=== PATIENT | male | born 1955 | race Caucasian/White ===

== ENCOUNTER 2025-03-17 11:21 | Emergency (ER) | payer MEDICARE, BC ==
[~2025-03-17] VITALS: Ht 175.3 cm; Wt 99.1 kg
[2025-03-17] MEDS: adenosine 3mg/ml 2ml vial IV ONE ×2 (11:35)
--- NOTE | 2025-03-17 11:43 | Physician Documentation ---
History of Present Illness ~ Chief Complaint: Chest Pain Stated Complaint: CHEST PRESSURE Time Seen by MD: 11:29 OK to notify your PCP?: Yes Source: patient, RN/MD, RN notes reviewed, EMS notes reviewed Mode of Arrival: EMS Exam Limitations: no limitations HPI This pleasant 69-year-old [facility] resident comes in complaining of chest pressure that has been going on and off for about four nights. Other than that he has never had any cardiac issues. He has been taking a long walk this weekend but otherwise he feels healthy. After the long walk he was having these episodes of chest pressure but this morning at 3:00 a.m. he started having rapid heart rate as well as some other symptoms such as diaphoresis but no shortness of breath. It would go on and off today he then had his regular two cups of coffee but no other stimulants by history. He does drink alcohol on the weekends but did not drink this weekend he only had two shots of hard liquor during a . He continued to have these symptoms and decided to come in. He has no other complaints at this time. He has a history of most double orthopedic surgeries as well as a inguinal hernia. x tobacco smoker negative past medical history Medication Reconciliation Allergies: Coded Allergies: adhesive tape (Verified Allergy, Intermediate, RASH, 03/17/25) Scheduled Sotalol Hcl* (Betapace*), 0.5 TAB PO Q12H Past Medical History Past Medical History: No Pertinent History Past Surgical History: abdominal surgery (inguinal hernia repair), orthopedic surgeries, other (L spine surgery) Smoking Status: Former smoker Alcohol Use: Occasionally Drug Use: none Lives with: S/O Review of Systems All Other Systems at this time: Reviewed and Negative Physical Exam Vital Signs: RN Vital Signs have been reviewed: Yes, Temperature: 97.9, Source: Oral, Heart Rate: 164, Respiratory Rate: 16, BP: 136/96, Pulse Oximetry: 97, Weight: 99.090 Oxygen Flow Rate: 0 Physical Exam General: The patient is well developed, well nourished, nontoxic appearing and is in no acute distress. Skin: [place], warm and dry with no rashes. HEENT: Head was normocephalic and atraumatic. Eyes - pupils equal, round, reactive to light and accommodation. Extraocular movements were intact. Conjunctivae were nonicteric. The mouth and oropharynx were clear with moist mucous membranes. There were no pharyngeal exudates or erythema. Neck: Supple and nontender. There was no jugular venous distention, lymphadenopathy, thyromegaly or masses. Chest: Clear to auscultation bilaterally without wheezes, rales or rhonchi. No accessory muscle use. No dullness to percussion. Heart: Rate regular RAPID and rhythmic. S1, S2. No murmurs. Palpation of the chest wall was normal. Abdomen: Soft, nontender and nondistended. Positive bowel sounds. No guarding or rebound. Extremities: No cyanosis, clubbing or edema. The patient moves all extremities. Pulses were equal and symmetric. Neurologic: MOTOR SENSORY GROSSLY INTACT Psychologic: The patient was oriented to person, place and time. The patient demonstrated appropriate judgement and insight. Progress Results/Orders Reviewed/noted all lab results: Yes Results/Orders Orders - DAVID FALL MD Urinalysis, Cult If Indicated (03/17/25 11:29) Chest,Single View (03/17/25 11:29) Electrocardiogram (03/17/25 11:29) Hs Troponin I W Calculations (03/17/25 14:29) Drug Screen, Urine (03/17/25 11:30) Normal Saline 1000ml (0.9% Sodium Chlori (03/17/25 11:30) Sotalol Tablet (Betapace) (03/17/25 15:15) Completed Orders - DAVID FALL MD Cbc/Diff (03/17/25 11:29) MG (03/17/25 11:29) Pt Inr (03/17/25 11:29) PTT (03/17/25 11:29) PBNP (03/17/25 11:29) Chest,Single View (03/17/25 11:29) Ethanol (03/17/25 11:29) Electrocardiogram (03/17/25 11:29) BMP (03/17/25 11:29) Hs Troponin I W Calculations (03/17/25 11:29) Hs Troponin I W Calculations (03/17/25 13:29) Lipase (03/17/25 11:30) Magnesium Sulf-Water 2g/50ml (Magnesium (03/17/25 11:30) Adenosine Inj. (Adenocard Inj.) (03/17/25 11:35) Adenosine Inj. (Adenocard Inj.) (03/17/25 11:35) Aspirin 81mg Chew Tablet (Aspirin 81mg C (03/17/25 11:50) Medications Received in ER Medications (Trade) Dose Ordered Sig/Gerald Route PRN Reason Start Time Stop Time Status Last Admin Dose Admin Sodium Chloride 1,000 ml @ 200 mls/hr Q5H ONCE IV 03/17/25 11:30 03/17/25 16:29 03/17/25 11:52 200 MLS/HR Magnesium Sulfate 50 ml @ 25 mls/hr ONCE ONCE IV 03/17/25 11:30 03/17/25 13:29 DC 03/17/25 11:52 25 MLS/HR (aspirin 81MG chew tablet) 324 mg ONCE ONCE PO 03/17/25 11:50 03/17/25 11:51 DC 03/17/25 11:50 324 MG Vital Signs 03/17/25 03/17/25 03/17/25 03/17/25 11:29 11:54 12:03 13:58 Temp 97.9 97.6 97.6 Pulse 164 97 89 Resp 16 20 20 19 B/P (MAP) 136/96 100/74 (83) 108/79 (89) Pulse Ox 97 95 95 O2 Flow Rate 0 0 0 03/17/25 14:57 Temp 97.6 Pulse 82 Resp 15 B/P (MAP) 151/98 (115) Pulse Ox 96 O2 Flow Rate 0 Laboratory Tests Test 03/17/25 11:39 03/17/25 13:33 03/17/25 14:58 White Blood Count 7.4 Red Blood Count 5.70 Hemoglobin 17.9 Hematocrit 52.2 H Mean Corpuscular Volume 91.5 Mean Corpuscular Hemoglobin 31.4 H Mean Corpuscular Hemoglobin Concent 34.3 Red Cell Distribution Width 14.7 H Platelet Count 301 Mean Platelet Volume 7.7 Neutrophils (%) (Auto) 65.2 Lymphocytes (%) (Auto) 23.0 Monocytes (%) (Auto) 8.6 Eosinophils (%) (Auto) 2.5 Basophils (%) (Auto) 0.7 Neutrophils # (Auto) 4.8 Lymphocytes # (Auto) 1.7 Monocytes # (Auto) 0.6 Eosinophils # (Auto) 0.2 Basophils # (Auto) 0.1 CBC Comment Prothrombin Time 11.2 INR International Normalized Ratio 1.1 Activated Partial Thromboplast Time 31 Coagulation Comments Sodium Level 136 Potassium Level 4.9 Chloride Level 102 Carbon Dioxide Level 26.5 Anion Gap 8 Blood Urea Nitrogen 13 Creatinine 0.80 Estimated GFR/1.73 m2 > 90 BUN/Creatinine Ratio 16.3 Glucose Level 116 H Calcium Level 8.7 Magnesium Level 1.8 Troponin I High Sensitivity 24 30 Pro-B-Type Natriuretic Peptide 263 H Albumin 3.5 Lipase 50 Chemistry Comments Ethyl Alcohol Level < 10 Troponin I High Sens Percent Delta 25 Troponin I Hi Sens Absolute Change 6 Re-Evaluation Re-Evaluation : Re-Evaluation: Resolved, Improved Progress Patient was seen and examined patient was given reassurance pacer pads IV lines were established fluid boluses were given as well as magnesium. Aspirin as well. Patient's laboratory work CBC did not show any signs of anemia or leukocytosis. Patient's chemistry electrolytes were within normal limits troponins all within normal limits. Patient's alcohol level was negative. X- ray did not show any cardiomegaly. Patient was doing better resolved on its own received sotalol and prescribed the same for PRN basis. Etiologies can be cardiovascular but unlikely patient exercises frequently and has not had any issues necessarily but did have some exercising this week and then started having his arrhythmias. Electrolytes were negative. Most likely may need a Holter monitor as well as cardiac evaluation. Patient was then discharged home recommended daily aspirin. 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 David Fall Measurements Intervals [place] Rate: 166 P: 75 MI: 92 QRS: -62 QRSD: 80 T: 40 QT: 297 QTc: 494 Interpretive Statements Supraventricular tachycardia Left anterior fascicular block Abnormal R-wave progression, late transition Consider left ventricular hypertrophy Nonspecific T abnormalities, inferior leads Electronically Signed On 03-17-2025 13:30:[address] David Fall Please click the below link to view image of tracing. EKG Date and Time:03/17/25 1124 Chest X-Ray : Interpreted By: both Views: 1 VIEW Additional Comments CHEST RADIOGRAPH Indication: CHEST PAIN Technique: Single frontal view of the chest was obtained COMPARISON: None FINDINGS: Lines and Tubes: None Lungs: Clear Pleura: No effusion. No pneumothorax. Cardiomediastinal contours: Unremarkable Bones: Unremarkable IMPRESSION: No acute disease. Electronically Signed by:MELVIN YEUNG MD Date & Time: 03/17/25 1248 Heart Score: Heart Score Response (Comments) Value History Slightly Suspicious 0 EKG Repolarization Disturb 1 Age >65 2 Risk Factors No known risk factors 0 Troponin Normal limit 0 Total 3 Medical Decision Making Additional information obtaine: old records Findings Patient has a SVT etiology electrolytes versus coronary artery disease versus arrhythmias Heart Score: 4 Differential Dx:Considerations: Include: angina, aortic dissection, chest wall pain, cholelithiasis, CHF, costochondritis, esophageal reflux/spasm, gastritis, herpes zoster, myocardial infarction, pericarditis, pleuritis, pancreatitis, pneumonia, pneumothorax, pulmonary embolus, other Departure Disposition: 09 ADMITTED INPATIENT Admitted to Inpatient Unit: to hospitalist Admission Level of Care: PCU with Tele Impression: Primary Impression: SVT (supraventricular tachycardia) Additional Impression: Chest pressure Condition: Guarded Discharge Instructions: Supraventricular Tachycardia, Adult, [id number] Additional Instructions: Follow up with Cardiology for Holter monitor and additional cardiac workup take a daily aspirin as needed till your cardiac workup beta faraz was given on a PRN basis but if you have additional episodes you still need to return to the ER. Referrals: NO PRIMARY CARE PROVIDER (PCP) STEVE ANNE MD Prescriptions Sotalol Hcl* (Betapace*) 80 Mg Tablet 0.5 TAB PO Q12H for 30 Days, #30 TAB 0 Refills Prov: DAVID FALL MD 03/17/25 Education Educated: Patient Educated regarding: diagnosis, need for follow up, other Critical Care Note Total Time (mins): 30 Critical Care Note The very real possibility of a deterioration of this patient's condition required the highest level of my preparedness for sudden, emergent intervention. I provided critical care services, which included medication orders, frequent reevaluations of the patient's condition and response to treatment, ordering and reviewing test results, and discussing the case with various consultants. Excludes time spent performing separately billable procedures. The critical care time associated with the care of the patient was. 30 minutes Signature Scribe Signature: No Attestation: The note accurately reflects work and decisions made by me.David Fall MD 03/17/25 15:21 DAVID FALL MD Mar 17, 2025 11:42
--- NOTE | 2025-03-17 11:48 | ELECTROCARDIOGRAPH REPORT ---
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 Kamar Osorio Measurements Intervals [place] Rate: 166 P: 75 CT: 92 QRS: -62 QRSD: 80 T: 40 QT: 297 QTc: 494 Interpretive Statements Supraventricular tachycardia Left anterior fascicular block Abnormal R-wave progression, late transition Consider left ventricular hypertrophy Nonspecific T abnormalities, inferior leads Electronically Signed On 03-17-2025 13:30:[address] Kamar Osorio Please click the below link to view image of tracing.
[2025-03-17] MEDS: magnesium sulf-water 2g/50mL 50 ML IV ONE (11:52)
[2025-03-17] MEDS: normal saline 1000ml 1,000 ML IV ONE (11:52)
[2025-03-17 11:58] LABS: MEAN PLATELET VOLUME 7.7 FL (7.4-10.4); RED CELL DISTRIBUTION WIDTH 14.7 % (11.5-14.5)
[2025-03-17 12:07] LABS: APTT 31 SECONDS (22-32); INR 1.1 INR
[2025-03-17 12:16] LABS: CREATININE 0.80 MG/DL (0.60-1.10); ETHANOL < 10 MG/DL (<10); PRO BRAIN NATRIURETIC PEPTIDE 263 PG/ML (0-125); TOTAL CARBON DIOXIDE 26.5 MMOL/L (24-32); eCRCL 88 ML/MIN; eGFR > 90 ML/MIN
--- NOTE | 2025-03-17 12:51 | RADIOLOGY REPORT ---
CHEST RADIOGRAPH Indication: CHEST PAIN Technique: Single frontal view of the chest was obtained COMPARISON: None FINDINGS: Lines and Tubes: None Lungs: Clear Pleura: No effusion. No pneumothorax. Cardiomediastinal contours: Unremarkable Bones: Unremarkable IMPRESSION: No acute disease.
[2025-03-17 14:57] VITALS: BP 151/98; PULSE 82; RESP 15; O2SAT 96
[2025-03-17] MEDS ORDERED: SOTA80TA73 PO (15:14)
[2025-03-17] MEDS: sotalol HCl 40mg (1/2 tablet) PO SCH (15:15)
[2025-03-17 15:28] VITALS: TEMP 97.6
== END 2025-03-17 15:45 | disposition admitted as inpatient to this hospital (09) ==
LOC: ER 11:22
DX: I47.10 Supraventricular tachycardia, unspecified (principal); R07.89 Other chest pain; Z72.89 Other problems related to lifestyle; Z91.048 Other nonmedicinal substance allergy status
CPT/HCPCS: 36415; 71045; 80048; 83690; 83735; 83880; 84484; 85025; 85610; 85730; 93005; 96361; 96365; 96366; 99291; 99292; G0480; J7030; 80320